=== PATIENT | male | born 1965 | race Caucasian/White ===

== ENCOUNTER 2016-08-11 12:16 | Emergency (ER) | payer SELFPAY ==
[2016-08-11] MEDS ORDERED: Sodium Chloride 0.9% 1,000 ML IV ONE (13:12)
[2016-08-11] MEDS ORDERED: Ketorolac 30 MG/ML SDV IVPUSH ONE (13:13)
[2016-08-11] MEDS ORDERED: Morphine 2 MG/ML Syringe IVPUSH ONE (13:18)
[2016-08-11] MEDS ORDERED: Tamsulosin 0.4 MG Cap.ER PO ONE (13:18)
--- NOTE | 2016-08-11 14:43 | EDM.PDOC ---
ED HPI GENERAL MEDICAL PROBLEM - General Chief Complaint: Back Pain or Injury Stated Complaint: LOWER BACK Time Seen by Provider: 08/11/16 13:00 Source of Information: Reports: Patient History Limitations: Reports: No Limitations - History of Present Illness INITIAL COMMENTS - FREE TEXT/NARRATIVE: HISTORY AND PHYSICAL: History of present illness: [Pt comes to the ED complaining of L flank pain. Symptoms began at 10 p.m. last night and have gradually increased throughout the night and a.m. Increased pain with forward flexion and L lateral flexion. Radiation of pain to LLQ abdomen w/ back flexion. Has a history of kidney stones with lithotripsy and stent one year ago. Denies any trauma or injury to his low back. Denies fever and chills, hematuria and burning w/ urination. NO nausea, vomiting, change in bowels movements, chest pain, SOA or dyspnea. Has not taken any medications for his symptoms. History significant for hypertension which is well-controlled.] Review of systems: As per history of present illness and below otherwise all systems reviewed and negative. Past medical history: As per history of present illness and as reviewed below otherwise noncontributory. Surgical history: As per history of present illness and as reviewed below otherwise noncontributory. Social history: No reported history of drug or alcohol abuse. Family history: As per history of present illness and as reviewed below otherwise noncontributory. Physical exam: HEENT: Atraumatic, normocephalic. Oral mucous membranes moist. Lungs: Clear to auscultation, breath sounds equal bilaterally. Heart: S1S2, regular rate and rhythm. Abdomen: L flank tenderness with percussion. None on the right. Abdomen is soft and nondistended. Genitourinary: Deferred. Rectal: Deferred. Extremities: Atraumatic. Neurovascular unremarkable. Neuro: Awake, alert, oriented. Motor and sensory unremarkable throughout. Exam nonfocal. Diagnostics: [CT abd and pelvis without contrast] Therapeutics: [Morphine 2mg IV, 1 liter NS] Impression: [kidney stones] Plan: [Refused Toradol IV. UA shows large amount of blood. Nonobstructive calculi present in both collecting systems on CT. Pt is notified of findings. Rx ketorolac 10mg (#20) si po q 6 hours 0 RF's, Flomax 0.4mg (#10) si po qd 0 RF's, hydrocodone 5/325mg (#30) si po q 4-6 hours prn pain 0 RF's. Referred to urology. Pt verbalized understanding of today's plan. ] Definitive disposition and diagnosis as appropriate pending reevaluation and review of above. Lower Back Pain Score (Numeric/FACES): 10 - Related Data Allergies Allergy/AdvReac Type Severity Reaction Status Date / Time No Known Allergies Allergy Verified 08/11/16 12:26 Home Meds: Home Meds Ketorolac [Toradol] 10 mg PO Q6H #20 tablet 08/11/16 [Rx] Tamsulosin HCl [Flomax] 0.4 mg PO DAILY #10 cap.er.24h 08/11/16 [Rx] Past Medical History - Past Health History Medical/Surgical History: Denies Medical/Surgical History Cardiovascular History: Reports: Hypertension Genitourinary History: Reports: Renal Calculus - Past Surgical History Other Male Surgeries/Procedures: surgery for kidney stones Other Musculoskeletal Surgeries/Procedures:: right shoulder surgery Social & Family History - Family History Family Medical History: Noncontributory - Tobacco Use Smoking Status *Q: Current Every Day Smoker Years of Tobacco use: 9 Packs/Tins Daily: 0.5 - Caffeine Use Caffeine Use: Reports: Coffee Caffeine Use Comment: 1-2x/week - Alcohol Use Days Per Week of Alcohol Use: 0 - Recreational Drug Use Recreational Drug Use: No ED ROS GENERAL - Review of Systems Review Of Systems: ROS reveals no pertinent complaints other than HPI. ED EXAM,LOWER BACK PAIN/INJURY - Physical Exam Exam: See Below Course - Vital Signs Last Recorded V/S: Last Vital Signs Temp 97.6 F 08/11/16 14:47 Pulse 66 08/11/16 14:47 Resp 16 08/11/16 14:47 BP 126/83 08/11/16 14:47 Pulse Ox 99 08/11/16 14:47 - Orders/Labs/Meds Orders: Active Orders 24 hr Category Date Time Status Abdomen Pelvis wo Cont [CT] Stat Exams 08/11/16 13:11 Taken Labs: Laboratory Tests 08/11/16 Range/Units 12:45 Urine Color YELLOW Urine Appearance SLT CLOUDY Urine pH 5.5 (5.0-8.0) Ur Specific [place] 1.015 (1.001-1.035) Urine Protein NEGATIVE (NEGATIVE) mg/dL Urine Glucose (UA) NEGATIVE (NEGATIVE) mg/dL Urine Ketones NEGATIVE (NEGATIVE) mg/dL Urine Occult Blood LARGE H (NEGATIVE) Urine Nitrite NEGATIVE (NEGATIVE) Urine Bilirubin NEGATIVE (NEGATIVE) Urine Urobilinogen 0.2 (<2.0) EU/dL Ur Leukocyte Esterase TRACE (NEGATIVE) Urine RBC 15-20 (0-2/HPF) Urine WBC 0-2 (0-5/HPF) Ur Epithelial Cells RARE (NONE-FEW) Amorphous Sediment RARE (NEGATIVE) Urine Bacteria RARE (NEGATIVE) Meds: Medications Discontinued Medications Generic Name Dose Route Start Last Admin Trade Name Freq PRN Reason Stop Dose Admin Sodium Chloride 1,000 mls @ 999 mls/hr 08/11/16 13:12 08/11/16 13:34 Normal Saline IV 08/11/16 14:12 999 mls/hr STAT ONE Administration Ketorolac Tromethamine 30 mg 08/11/16 13:13 08/11/16 13:36 Toradol IVPUSH 08/11/16 13:14 Not Given ONETIME ONE Morphine Sulfate 2 mg 08/11/16 13:18 08/11/16 13:33 Morphine IVPUSH 08/11/16 13:19 2 mg ONETIME ONE Administration Tamsulosin HCl 0.4 mg 08/11/16 13:18 08/11/16 13:32 Flomax PO 08/11/16 13:19 0.4 mg ONETIME ONE Administration Departure - Departure Time of Disposition: 14:47 Disposition: Home, Self-Care 01 Condition: good Clinical Impression: Kidney stone - Discharge Information Prescriptions: Ketorolac [Toradol] 10 mg PO Q6H #20 tablet Tamsulosin HCl [Flomax] 0.4 mg PO DAILY #10 cap.er.24h Instructions: Kidney Stones, [id number] Referrals: PCP,None [Primary Care Provider] - Jonatan Bagley MD [Physician] - Forms: ED Department Discharge Additional Instructions: The following information is given to patients seen in the emergency department who are being discharged to home. This information is to outline your options for follow-up care. We provide all patients seen in our emergency department with a follow-up referral. The need for follow-up, as well as the timing and circumstances, are variable depending upon the specifics of your emergency department visit. If you don't have a primary care physician on staff, we will provide you with a referral. We always advise you to contact your personal physician following an emergency department visit to inform them of the circumstance of the visit and for follow-up with them and/or the need for any referrals to a consulting specialist. The emergency department will also refer you to a specialist when appropriate. This referral assures that you have the opportunity for follow-up care with a specialist. All of these measure are taken in an effort to provide you with optimal care, which includes your follow-up. Under all circumstances we always encourage you to contact your private physician who remains a resource for coordinating your care. When calling for follow-up care, please make the office aware that this follow-up is from your recent emergency room visit. If for any reason you are refused follow-up, please contact the [facility] emergency department at and asked to speak to the emergency department charge nurse. [facility] Specialty Care - Urology [address] [place] [id number] Call the clinic listed above tomorrow morning to schedule followup appointment with our urologist. Take medications as prescribed. Return to ER as needed as discussed. - My Orders Last 24 Hours: My Active Orders 08/11/16 13:11 Abdomen Pelvis wo Cont [CT] Stat - Assessment/Plan Last 24 Hours: My Active Orders 08/11/16 13:11 Abdomen Pelvis wo Cont [CT] Stat
[2016-08-11 14:48] VITALS: BP 126/83
--- NOTE | 2016-08-12 17:43 | CT ---
EXAM DATE: 08/11/16 PATIENT'S AGE: 51 Patient: CODY SANDERS Facility: [place], [place] Site . Site : [id number] Study: CT Abdomen/Pelvis [id number]/[id number] 1:31:29 PM Ordering Physician: Doctor Haile Final Report: INDICATION: left flank pain HISTORY: Left flank pain. COMPARISON: None. TECHNIQUE: CT of the abdomen and pelvis without intravenous contrast. Coronal/sagittal reconstruction images. FINDINGS: Lung bases: There is no pleural or pericardial effusion. The heart size is normal. The lung bases demonstrate no acute airspace disease. There is no basilar pneumothorax. Abdomen/pelvis: No solid hepatic mass. The hepatic morphology is normal. Probable benign appearing cyst in segment 8 of the liver on image 29, series 201. This measures 4-5 mm in dimension. Spleen size is normal. No adrenal mass. Nonobstructive calculi in both intrarenal collecting systems. Four calculi are seen in the left intrarenal collecting system. Six calculi are seen in the right intrarenal collecting system. These measure up to 4 mm in dimension. There is no obstructive urolith. Prostate and urinary bladder are within normal limits. There is diverticulosis of the colon. No findings are seen to indicate diverticulitis. No small bowel obstruction. Normal caliber appendix. No abdominal aortic aneurysm. No abdominal or pelvic lymphadenopathy by size criteria. The bone windows demonstrate no lytic or blastic bone lesions. The alignment is preserved. There is osteophytic spurring present at the endplates. Irregularity about the inferior endplate of L1, does not appear acute. This is best seen on sagittal reconstruction images. IMPRESSION: 1. Nonobstructive calculi in both intrarenal collecting systems. 2. There is no obstructive urolith, hydronephrosis, or perinephric edema. 3. Normal caliber appendix. 4. Diverticulosis of the colon. No associated inflammatory changes. Dictated by Kofi Vaughn MD @ 08/11/2016 2:25:06 PM Dictated by: Kofi Vaughn MD @ 08/11/2016 14:25:38 (Electronic Signature) Report Signed by Proxy. [facility] HOSPITALMyra
== END 2016-08-11 14:51 | disposition home or self-care (01) ==
LOC: MW.ED 12:16
DX: N20.0 Calculus of kidney (principal); I10 Essential (primary) hypertension; F17.210 Nicotine dependence, cigarettes, uncomplicated; Z79.899 Other long term (current) drug therapy
CPT/HCPCS: 74176; 81001; 96361; 96374; 99284; A9270; J2270; J7040

== ENCOUNTER 2016-08-12 15:21 | Emergency (ER) | payer SELFPAY ==
[2016-08-12] MEDS ORDERED: Ondansetron 4 MG/2 ML SDV IVPUSH ONE (15:26)
[2016-08-12] MEDS ORDERED: Sodium Chloride 0.9% 2.5 ML Syringe FLUSH PRN (15:26)
[2016-08-12] MEDS ORDERED: HYDROmorphone 1 MG/ML Syringe IVPUSH PRN (15:26)
[2016-08-12] MEDS ORDERED: Sodium Chloride 0.9% 10 ML Syringe FLUSH PRN (15:26)
[2016-08-12] MEDS ORDERED: Sodium Chloride 0.9% 1,000 ML IV ONE (15:26)
[2016-08-12] MEDS ORDERED: HYDROmorphone 1 MG/ML Syringe ONE (15:42)
--- NOTE | 2016-08-12 15:59 | EDM.PDOC ---
ED HPI GENERAL MEDICAL PROBLEM - General Chief Complaint: Flank Pain Stated Complaint: KIDNEY STONES Time Seen by Provider: 08/12/16 15:26 Source of Information: Reports: Patient History Limitations: Reports: No Limitations - History of Present Illness INITIAL COMMENTS - FREE TEXT/NARRATIVE: History of present illness: [] Patient presented yesterday with left flank pain and hematuria diagnosed with a kidney stone. He was discharged with pain medications but returns today with continuing flank pain and hematuria. Denies vomiting, diarrhea or fevers. States he is taking his pain meds but has not been working. Review of systems: As per history of present illness and below otherwise all systems reviewed and negative. Past medical history: As per history of present illness and as reviewed below otherwise noncontributory. Surgical history: As per history of present illness and as reviewed below otherwise noncontributory. Social history: No reported history of drug or alcohol abuse. Family history: As per history of present illness and as reviewed below otherwise noncontributory. Physical exam: General: Well developed, well nourished in NAD HEENT: Atraumatic, normocephalic, pupils reactive, negative for conjunctival pallor or scleral icterus, mucous membranes moist, throat clear, neck supple, nontender, trachea midline. Lungs: Clear to auscultation, breath sounds equal bilaterally, chest nontender. Heart: S1S2, regular, negative for clicks, rubs, or JVD. Abdomen: Soft, nondistended, nontender. Negative for masses or hepatosplenomegaly. Negative for costovertebral tenderness. Pelvis: Stable nontender. Genitourinary: Deferred. Rectal: Deferred. Extremities: Atraumatic, negative for cords or calf pain. Neurovascular unremarkable. Neuro: Awake, alert, oriented. Cranial nerves II through XII unremarkable. Cerebellum unremarkable. Motor and sensory unremarkable throughout. Exam nonfocal. Diagnostics: [] BUN and creatinine are normal Therapeutics: [] IV hydrated given Dilaudid 1 mg Impression: [] Left flank pain, I asked Dr. Echols to review the CT from yesterday and there is no sign of ureteral stone or diverticulitis causing his pain. This point I'm unsure of the cause of his flank pain Plan: [] Continue regular meds follow up with urology Definitive disposition and diagnosis as appropriate pending reevaluation and review of above. left kidney Pain Score (Numeric/FACES): 10 - Related Data Allergies Allergy/AdvReac Type Severity Reaction Status Date / Time No Known Allergies Allergy Verified 08/11/16 12:26 Home Meds: Home Meds Ketorolac [Toradol] 10 mg PO Q6H #20 tablet 08/11/16 [Rx] Tamsulosin HCl [Flomax] 0.4 mg PO DAILY #10 cap.er.24h 08/11/16 [Rx] Past Medical History - Past Health History Medical/Surgical History: Denies Medical/Surgical History Cardiovascular History: Reports: Hypertension Genitourinary History: Reports: Renal Calculus - Past Surgical History Other Male Surgeries/Procedures: surgery for kidney stones Other Musculoskeletal Surgeries/Procedures:: right shoulder surgery Social & Family History - Family History Family Medical History: Noncontributory - Tobacco Use Smoking Status *Q: Current Every Day Smoker Years of Tobacco use: 15 Packs/Tins Daily: 0.2 - Caffeine Use Caffeine Use: Reports: Coffee, Tea Caffeine Use Comment: 1-2x/week - Alcohol Use Days Per Week of Alcohol Use: 0 - Recreational Drug Use Recreational Drug Use: No ED ROS GENERAL - Review of Systems Review Of Systems: See Below (See history of present illness) ED EXAM, RENAL/ - Physical Exam Exam: See Below (See history of present illness) Course - Vital Signs Last Recorded V/S: Last Vital Signs Temp 36.3 C 08/12/16 15:31 Pulse 95 08/12/16 15:31 Resp 18 08/12/16 15:31 BP 121/88 08/12/16 15:31 Pulse Ox 96 08/12/16 15:31 - Orders/Labs/Meds Orders: Active Orders 24 hr Category Date Time Status HYDROmorphone [Dilaudid] Med 08/12/16 15:26 Active 0.5 mg IVPUSH Q1H PRN Sodium Chloride 0.9% [Saline Flush] Med 08/12/16 15:26 Active 10 ml FLUSH ASDIRECTED PRN Sodium Chloride 0.9% [Saline Flush] Med 08/12/16 15:26 Active 2.5 ml FLUSH ASDIRECTED PRN Peripheral IV Insertion Adult [OM.PC] Stat Oth 08/12/16 15:26 Ordered Medication Orders Hydromorphone HCl (Dilaudid) 0.5 mg IVPUSH Q1H PRN PRN Reason: Pain Last Admin: 08/12/16 15:53 Dose: 0.5 mg Sodium Chloride (Saline Flush) 10 ml FLUSH ASDIRECTED PRN PRN Reason: Keep Vein Open Sodium Chloride (Saline Flush) 2.5 ml FLUSH ASDIRECTED PRN PRN Reason: Keep Vein Open Labs: Laboratory Tests 08/12/16 Range/Units 15:00 Sodium 140 (136-146) mmol/L Potassium 3.8 (3.5-5.1) mmol/L Chloride 105 (98-110) mmol/L Carbon Dioxide 26 (21-31) mmol/L BUN 22 (6.0-23.0) mg/dL Creatinine 1.2 (0.6-1.5) mg/dL Est Cr Clr Drug Dosing 78.98 mL/min Estimated GFR (MDRD) > 60.0 ml/min Glucose 104 (60-110) mg/dL Calcium 9.6 (8.8-10.8) mg/dL Meds: Medications Generic Name Dose Route Start Last Admin Trade Name Fremendoza PRN Reason Stop Dose Admin Hydromorphone HCl 0.5 mg 08/12/16 15:26 08/12/16 15:53 Dilaudid IVPUSH 0.5 mg Q1H PRN Administration Pain Sodium Chloride 10 ml 08/12/16 15:26 Saline Flush FLUSH ASDIRECTED PRN Keep Vein Open Sodium Chloride 2.5 ml 08/12/16 15:26 Saline Flush FLUSH ASDIRECTED PRN Keep Vein Open Discontinued Medications Generic Name Dose Route Start Last Admin Trade Name Freq PRN Reason Stop Dose Admin Hydromorphone HCl Confirm 08/12/16 15:42 08/12/16 15:55 Dilaudid Administered 08/12/16 15:43 Not Given Dose 1 mg .ROUTE .STK-MED ONE Sodium Chloride 1,000 mls @ 999 mls/hr 08/12/16 15:26 08/12/16 15:53 Normal Saline IV 08/12/16 16:26 999 mls/hr .Bolus ONE Administration Ondansetron HCl 4 mg 08/12/16 15:26 08/12/16 15:52 Zofran IVPUSH 08/12/16 15:27 4 mg ONETIME ONE Administration Departure - Departure Time of Disposition: 16:53 Disposition: Home, Self-Care 01 Condition: good Clinical Impression: Renal colic - Discharge Information Forms: ED Department Discharge Additional Instructions: The following information is given to patients seen in the emergency department who are being discharged to home. This information is to outline your options for follow-up care. We provide all patients seen in our emergency department with a follow-up referral. The need for follow-up, as well as the timing and circumstances, are variable depending upon the specifics of your emergency department visit. If you don't have a primary care physician on staff, we will provide you with a referral. We always advise you to contact your personal physician following an emergency department visit to inform them of the circumstance of the visit and for follow-up with them and/or the need for any referrals to a consulting specialist. The emergency department will also refer you to a specialist when appropriate. This referral assures that you have the opportunity for follow-up care with a specialist. All of these measure are taken in an effort to provide you with optimal care, which includes your follow-up. Under all circumstances we always encourage you to contact your private physician who remains a resource for coordinating your care. When calling for follow-up care, please make the office aware that this follow-up is from your recent emergency room visit. If for any reason you are refused follow-up, please contact the [facility] Emergency Department at and asked to speak to the emergency department charge nurse. Continue pain meds given previously. Followup urology [facility] Specialty Care - Urology [address] [place] [id number] - My Orders Last 24 Hours: My Active Orders 08/12/16 15:26 HYDROmorphone [Dilaudid] 0.5 mg IVPUSH Q1H PRN Sodium Chloride 0.9% [Saline Flush] 10 ml FLUSH ASDIRECTED PRN Sodium Chloride 0.9% [Saline Flush] 2.5 ml FLUSH ASDIRECTED PRN Peripheral IV Insertion Adult [OM.PC] Stat - Assessment/Plan Last 24 Hours: My Active Orders 08/12/16 15:26 HYDROmorphone [Dilaudid] 0.5 mg IVPUSH Q1H PRN Sodium Chloride 0.9% [Saline Flush] 10 ml FLUSH ASDIRECTED PRN Sodium Chloride 0.9% [Saline Flush] 2.5 ml FLUSH ASDIRECTED PRN Peripheral IV Insertion Adult [OM.PC] Stat
[2016-08-12 16:22] LABS: CHLORIDE,CL 105 mmol/L (98-110); SODIUM,NA 140 mmol/L (136-146)
[2016-08-12 19:52] VITALS: BP 127/75
== END 2016-08-12 17:01 | disposition home or self-care (01) ==
LOC: MW.ED 15:21
DX: N23 Unspecified renal colic (principal); I10 Essential (primary) hypertension; F17.210 Nicotine dependence, cigarettes, uncomplicated; Z79.899 Other long term (current) drug therapy
CPT/HCPCS: 36415; 80048; 96361; 96374; 96375; 99283; J1170; J2405; J7040; 99284

== ENCOUNTER → 2016-08-19 | Outpatient (CLI) | payer SELFPAY | LOC: MW.CHUR 12:30 | PROVIDERS: ATTEND Urology | DX: N20.0 Calculus of kidney (principal) | CPT/HCPCS: 81001 ==

== ENCOUNTER 2017-10-21 09:15 | Emergency (ER) | payer BC ==
[2017-10-21] MEDS ORDERED: Bacitracin Oint 1 GM U/D Packet TOP ONE (09:37)
--- NOTE | 2017-10-21 09:49 | EDM.PDOC ---
ED HPI GENERAL MEDICAL PROBLEM - General Chief Complaint: ENT Problem Stated Complaint: nose bleed Time Seen by Provider: 10/21/17 09:45 - History of Present Illness INITIAL COMMENTS - FREE TEXT/NARRATIVE: HISTORY AND PHYSICAL: History of present illness: Patient's 52-year-old male presents with a concern of bleeding from a abrasion to his midface that excoriated a superficial capillary this is resolved since arrival with direct pressure he denies other concern. Review of systems: As per history of present illness and below otherwise all systems reviewed and negative. Past medical history: As per history of present illness and as reviewed below otherwise noncontributory. Surgical history: As per history of present illness and as reviewed below otherwise noncontributory. Social history: No reported history of drug or alcohol abuse. Family history: As per history of present illness and as reviewed below otherwise noncontributory. Physical exam: HEENT: Atraumatic, normocephalic, pupils reactive, negative for conjunctival pallor or scleral icterus, mucous membranes moist, throat clear, neck supple, nontender, trachea midline. Patient with small excoriated area on his nose overlying a superficial capillary with no active bleeding at this time Lungs: Clear to auscultation, breath sounds equal bilaterally, chest nontender. Heart: S1S2, regular, negative for clicks, rubs, or JVD. Abdomen: Soft, nondistended, nontender. Negative for masses or hepatosplenomegaly. Negative for costovertebral tenderness. Pelvis: Stable nontender. Genitourinary: Deferred. Rectal: Deferred. Extremities: Atraumatic, negative for cords or calf pain. Neurovascular unremarkable. Neuro: Awake, alert, oriented. Cranial nerves II through XII unremarkable. Cerebellum unremarkable. Motor and sensory unremarkable throughout. Exam nonfocal. Diagnostics: None Therapeutics: None Impression: #1 midface bleeding secondary to minor excoriation (capillary) Definitive disposition and diagnosis as appropriate pending reevaluation and review of above. - Related Data Allergies Allergy/AdvReac Type Severity Reaction Status Date / Time No Known Allergies Allergy Verified 10/21/17 09:29 Home Meds: Home Meds . [No Known Home Meds] 10/21/17 [History] Past Medical History - Past Health History Medical/Surgical History: Denies Medical/Surgical History Cardiovascular History: Reports: Hypertension Genitourinary History: Reports: Renal Calculus - Infectious Disease History Infectious Disease History: Reports: None - Past Surgical History Other Male Surgeries/Procedures: surgery for kidney stones Other Musculoskeletal Surgeries/Procedures:: right shoulder surgery Social & Family History - Family History Family Medical History: Noncontributory - Tobacco Use Smoking Status *Q: Current Every Day Smoker Years of Tobacco use: 25 Packs/Tins Daily: 0.3 - Caffeine Use Caffeine Use: Reports: Coffee Caffeine Use Comment: 1-2x/week - Recreational Drug Use Recreational Drug Use: No ED ROS GENERAL - Review of Systems Review Of Systems: ROS reveals no pertinent complaints other than HPI. ED EXAM, GENERAL - Physical Exam Exam: See Below (See dictation) Course - Vital Signs Last Recorded V/S: Last Vital Signs Temp 36.3 C 10/21/17 09:30 Pulse 87 10/21/17 09:30 Resp 16 10/21/17 09:30 BP 174/109 H 10/21/17 09:30 Pulse Ox 98 10/21/17 09:30 - Orders/Labs/Meds Meds: Medications Discontinued Medications Generic Name Dose Route Start Last Admin Trade Name Jad PRN Reason Stop Dose Admin Bacitracin 1 dose 10/21/17 09:37 10/21/17 09:42 Bacitracin Oint 1 Gm TOP 10/21/17 09:38 1 dose ONETIME ONE Administration Departure - Departure Time of Disposition: 09:47 Disposition: Home, Self-Care 01 Condition: Good Clinical Impression: Excoriation of face - Discharge Information *PRESCRIPTION DRUG MONITORING PROGRAM REVIEWED*: Not Applicable *COPY OF PRESCRIPTION DRUG MONITORING REPORT IN PATIENT ALBA: Not Applicable Referrals: PCP,None [Primary Care Provider] - Additional Instructions: The following information is given to patients seen in the emergency department who are being discharged to home. This information is to outline your options for follow-up care. We provide all patients seen in our emergency department with a follow-up referral. The need for follow-up, as well as the timing and circumstances, are variable depending upon the specifics of your emergency department visit. If you don't have a primary care physician on staff, we will provide you with a referral. We always advise you to contact your personal physician following an emergency department visit to inform them of the circumstance of the visit and for follow-up with them and/or the need for any referrals to a consulting specialist. The emergency department will also refer you to a specialist when appropriate. This referral assures that you have the opportunity for followup care with a specialist. All of these measure are taken in an effort to provide you with optimal care, which includes your followup. Under all circumstances we always encourage you to contact your private physician who remains a resource for coordinating your care. When calling for followup care, please make the office aware that this follow-up is from your recent emergency room visit. If for any reason you are refused follow-up, please contact the [facility] emergency department at and asked to speak to the emergency department charge nurse. Follow-up private medical doctor as needed as discussed return as needed as discussed
[2017-10-21 11:11] VITALS: BP 156/101
== END 2017-10-21 09:57 | disposition home or self-care (01) ==
LOC: MW.ED 09:15
DX: S00.31XA Abrasion of nose, initial encounter (principal); I10 Essential (primary) hypertension; F17.210 Nicotine dependence, cigarettes, uncomplicated; X58.XXXA Exposure to other specified factors, initial encounter
CPT/HCPCS: 99282; 99283

== ENCOUNTER 2018-10-17 15:39 | Emergency (ER) | payer BC ==
[2018-10-17] MEDS ORDERED: Ketorolac 60 MG/2 ML SDV IM ONE (15:55)
--- NOTE | 2018-10-17 16:07 | EDM.PDOC ---
ED HPI GENERAL MEDICAL PROBLEM - General Chief Complaint: Back Pain or Injury Stated Complaint: BACK INJURY Time Seen by Provider: 10/17/18 15:54 - History of Present Illness INITIAL COMMENTS - FREE TEXT/NARRATIVE: HISTORY AND PHYSICAL: History of present illness: HISTORY AND PHYSICAL: History of present illness: Patient 33-year-old white male presents with acute low back pain after lifting a tire at work he denies numbness weakness in concert bowel or bladder he states he did have his back brace at that time. Review of systems: As per history of present illness and below otherwise all systems reviewed and negative. Past medical history: As per history of present illness and as reviewed below otherwise noncontributory. Surgical history: As per history of present illness and as reviewed below otherwise noncontributory. Social history: No reported history of drug or alcohol abuse. Family history: As per history of present illness and as reviewed below otherwise noncontributory. Physical exam: HEENT: Atraumatic, normocephalic, pupils reactive, negative for conjunctival pallor or scleral icterus, mucous membranes moist, throat clear, neck supple, nontender, trachea midline. Lungs: Clear to auscultation, breath sounds equal bilaterally, chest nontender. Heart: S1S2, regular, negative for clicks, rubs, or JVD. Abdomen: Soft, nondistended, nontender. Negative for masses or hepatosplenomegaly. Negative for costovertebral tenderness. Pelvis: Stable nontender. Genitourinary: Deferred. Rectal: Deferred. Extremities: Atraumatic, negative for cords or calf pain. Neurovascular unremarkable. Neuro: Awake, alert, oriented. Cranial nerves II through XII unremarkable. Cerebellum unremarkable. Motor and sensory unremarkable throughout. Exam nonfocal. Back: Patient has tenderness in paravertebral region with spasm noted at the level of lumbar spine no vertebral body or point tenderness she is able stand on his toes back on his heels deep tendon reflexes motor and sensory are normal Diagnostics: UA Therapeutics: Toradol 60 mg IM Impression: #1 acute lumbar strain Definitive disposition and diagnosis as appropriate pending reevaluation and review of above. Review of systems: As per history of present illness and below otherwise all systems reviewed and negative. Past medical history: As per history of present illness and as reviewed below otherwise noncontributory. Surgical history: As per history of present illness and as reviewed below otherwise noncontributory. Social history: No reported history of drug or alcohol abuse. Family history: As per history of present illness and as reviewed below otherwise noncontributory. Physical exam: HEENT: Atraumatic, normocephalic, pupils reactive, negative for conjunctival pallor or scleral icterus, mucous membranes moist, throat clear, neck supple, nontender, trachea midline. Lungs: Clear to auscultation, breath sounds equal bilaterally, chest nontender. Heart: S1S2, regular, negative for clicks, rubs, or JVD. Abdomen: Soft, nondistended, nontender. Negative for masses or hepatosplenomegaly. Negative for costovertebral tenderness. Pelvis: Stable nontender. Genitourinary: Deferred. Rectal: Deferred. Extremities: Atraumatic, negative for cords or calf pain. Neurovascular unremarkable. Neuro: Awake, alert, oriented. Cranial nerves II through XII unremarkable. Cerebellum unremarkable. Motor and sensory unremarkable throughout. Exam nonfocal. Diagnostics: [] Therapeutics: [] Impression: [] Definitive disposition and diagnosis as appropriate pending reevaluation and review of above. Lower Back Pain Score (Numeric/FACES): 10 - Related Data Allergies Allergy/AdvReac Type Severity Reaction Status Date / Time No Known Allergies Allergy Verified 10/17/18 15:54 Home Meds: Home Meds . [No Known Home Meds] 10/21/17 [History] Past Medical History - Past Health History Medical/Surgical History: Denies Medical/Surgical History Cardiovascular History: Reports: High Cholesterol, Hypertension Genitourinary History: Reports: Renal Calculus - Infectious Disease History Infectious Disease History: Reports: None - Past Surgical History Other Male Surgeries/Procedures: surgery for kidney stones Other Musculoskeletal Surgeries/Procedures:: right shoulder surgery Social & Family History - Family History Family Medical History: Noncontributory - Tobacco Use Smoking Status *Q: Current Every Day Smoker Years of Tobacco use: 10 Packs/Tins Daily: 0.2 - Caffeine Use Caffeine Use: Reports: Coffee Caffeine Use Comment: 1-2x/week - Recreational Drug Use Recreational Drug Use: No ED ROS GENERAL - Review of Systems Review Of Systems: ROS reveals no pertinent complaints other than HPI. ED EXAM, GENERAL - Physical Exam Exam: See Below (See dictation) Course - Vital Signs Last Recorded V/S: Last Vital Signs Temp 36.1 C 07/20/19 15:53 Pulse 99 10/17/18 15:53 Resp 18 10/17/18 15:53 BP 143/94 H 10/17/18 15:53 Pulse Ox 94 L 10/17/18 15:53 - Orders/Labs/Meds Orders: Active Orders 24 hr Category Date Time Status UA W/SAMINA RFLX IF INDICATED [URIN] Stat Lab 10/17/18 15:57 Ordered Meds: Medications Discontinued Medications Generic Name Dose Route Start Last Admin Trade Name Jad PRN Reason Stop Dose Admin Ketorolac Tromethamine 60 mg 10/17/18 15:55 10/17/18 16:02 Toradol IM 10/17/18 15:56 60 mg ONETIME ONE Administration Departure - Departure Time of Disposition: 16:06 Disposition: Home, Self-Care 01 Condition: Good Clinical Impression: Lumbar strain - Discharge Information Referrals: PCP,Unknown [Primary Care Provider] - Additional Instructions: The following information is given to patients seen in the emergency department who are being discharged to home. This information is to outline your options for follow-up care. We provide all patients seen in our emergency department with a follow-up referral. The need for follow-up, as well as the timing and circumstances, are variable depending upon the specifics of your emergency department visit. If you don't have a primary care physician on staff, we will provide you with a referral. We always advise you to contact your personal physician following an emergency department visit to inform them of the circumstance of the visit and for follow-up with them and/or the need for any referrals to a consulting specialist. The emergency department will also refer you to a specialist when appropriate. This referral assures that you have the opportunity for followup care with a specialist. All of these measure are taken in an effort to provide you with optimal care, which includes your followup. Under all circumstances we always encourage you to contact your private physician who remains a resource for coordinating your care. When calling for followup care, please make the office aware that this follow-up is from your recent emergency room visit. If for any reason you are refused follow-up, please contact the [facility] emergency department at and asked to speak to the emergency department charge nurse. Ultram Flexeril as prescribed follow-up primary medical doctor as needed as discussed and return as needed as discussed - My Orders Last 24 Hours: My Active Orders 10/17/18 15:57 UA W/SAMINA RFLX IF INDICATED [URIN] Stat - Assessment/Plan Last 24 Hours: My Active Orders 10/17/18 15:57 UA W/SAMINA RFLX IF INDICATED [URIN] Stat
[2018-10-17 16:52] VITALS: BP 148/95
== END 2018-10-17 16:55 | disposition home or self-care (01) ==
LOC: MW.ED 15:39
DX: S39.012A Strain of muscle, fascia and tendon of lower back, initial encounter (principal); I10 Essential (primary) hypertension; F17.210 Nicotine dependence, cigarettes, uncomplicated; X50.0XXA Overexertion from strenuous movement or load, initial encounter; Y99.0 Civilian activity done for income or pay
CPT/HCPCS: 81001; 96372; 99283; J1885

== ENCOUNTER 2019-05-20 16:15 | Emergency (ER) | payer BC ==
[2019-05-20] MEDS ORDERED: Sodium Chloride 0.9% 1,000 ML IV ONE (17:03)
[2019-05-20] MEDS ORDERED: Ondansetron 4 MG/2 ML SDV IVPUSH ONE (17:03)
--- NOTE | 2019-05-20 17:07 | EDM.PDOC ---
ED HPI GENERAL MEDICAL PROBLEM - General Chief Complaint: Gastrointestinal Problem Stated Complaint: FLU SYMPTOMS Time Seen by Provider: 05/20/19 16:57 Source of Information: Reports: Patient History Limitations: Reports: No Limitations - History of Present Illness INITIAL COMMENTS - FREE TEXT/NARRATIVE: HISTORY AND PHYSICAL: History of present illness: Patient is a 54-year-old male who presents to the ED today with concern of vomiting, weakness, and states he has not had a bowel movement for 5 days. Patient states he also has not passed gas for 5 days. Patient states that the vomiting is not consistent and he has been able to drink water and Pedialyte but has not been able to eat any solid foods over the past 5 days. Patient states that he feels weak and when he went to work today was unable to even hold a hose due to week. Patient states that he is not having any pain but has not had a bowel movement for 5 days and states he has also not passed gas. Patient states he has a history of hypertension and hyper cholesterolemia and states that he ran out of his medication 5 days ago so has not been taking these over the last 5 days. Patient denies any other health history. Patient states he does smoke about 5 cigarettes a day and has so for 20 to 30 years. Patient denies any other substance use. Patient denies any trauma or injury. Patient denies fever, chills, chest pain, shortness of breath, or cough. Denies headache, neck stiff ness, change in vision, syncope, or near syncope. Denies abdominal pain, diarrhea or dysuria. Has not noted any blood in urine or stool. Patient has been eating and drinking appropriately. Review of systems: As per history of present illness and below otherwise all systems reviewed and negative. Past medical history: As per history of present illness and as reviewed below otherwise noncontributory. Surgical history: As per history of present illness and as reviewed below otherwise noncontributory. Social history: See social history for further information Family history: As per history of present illness and as reviewed below otherwise noncontributory. Physical exam: General: Patient is alert, oriented, and in no acute distress. Patient laying comfortably on exam table. HEENT: Atraumatic, normocephalic, pupils equal and reactive bilaterally, negative for conjunctival pallor or scleral icterus, mucous membranes dry, TMs normal bilaterally, throat clear, neck supple, nontender, trachea midline. No drooling or trismus noted. No meningeal signs. No hot potato voice noted. Lungs: Clear to auscultation, breath sounds equal bilaterally, chest nontender. Heart: S1S2, regular rate and rhythm without overt murmur Abdomen: Soft, nondistended, nontender. Negative for masses or hepatosplenomegaly. Negative for costovertebral tenderness. Pelvis: Stable nontender. Genitourinary: Deferred. Rectal: Deferred. Skin: Intact, warm, dry. No lesions or rashes noted. Extremities: Atraumatic, negative for cords or calf pain. Neurovascular unremarkable. Neuro: Awake, alert, oriented. Cranial nerves II through XII unremarkable. Cerebellum unremarkable. Motor and sensory unremarkable throughout. Exam nonfocal. Notes: Patient has not had any episodes of vomiting in the ED today and has been able to keep down fluids. Discussed importance for follow-up with a urologist as well as a primary care provider. Voices understanding and is agreeable to plan of care. Denies any further questions or concerns at this time. Diagnostics: CBC, CMP, UA, EKG, chest x-ray, troponin, lipase, abdominal pelvic CT, Strep, Influenza Therapeutics: NS, Zofran Prescription: Zofran Impression: H/O vomiting Constipation Hematuria Plan: 1. Encourage small but frequent sips of fluid to prevent dehydration. Take medication as prescribed. 2. Follow-up with urologist and primary care provider as discussed. Return to the ED as needed and as discussed. 3. Use [id number] MiraLAX as directed for constipation. Definitive disposition and diagnosis as appropriate pending reevaluation and review of above. - Related Data Allergies Allergy/AdvReac Type Severity Reaction Status Date / Time Ghbathi-Rpf-Tdv Reductase Allergy Anaphylactic Verified 05/20/19 16:27 Inhibitor Shock Home Meds: Home Meds Rosuvastatin Calcium [Crestor] 40 mg PO DAILY 10/17/18 [History] Bp Med 05/20/19 [History] Past Medical History - Past Health History Medical/Surgical History: Denies Medical/Surgical History Cardiovascular History: Reports: High Cholesterol, Hypertension Genitourinary History: Reports: Renal Calculus - Infectious Disease History Infectious Disease History: Reports: Chicken Pox, Measles, Mumps - Past Surgical History Other Male Surgeries/Procedures: surgery for kidney stones Other Musculoskeletal Surgeries/Procedures:: right shoulder surgery Social & Family History - Family History Family Medical History: Noncontributory - Tobacco Use Smoking Status *Q: Current Every Day Smoker Years of Tobacco use: 5 Packs/Tins Daily: 0.2 - Caffeine Use Caffeine Use: Reports: Coffee Caffeine Use Comment: 1-2x/week - Recreational Drug Use Recreational Drug Use: No ED ROS GENERAL - Review of Systems Review Of Systems: Comprehensive ROS is negative, except as noted in HPI. ED EXAM, GENERAL - Physical Exam Exam: See Below (see dictation) Course - Vital Signs Last Recorded V/S: Last Vital Signs Temp 97.9 F 05/20/19 18:41 Pulse 72 05/20/19 18:41 Resp 16 05/20/19 18:41 BP 127/88 05/20/19 18:41 Pulse Ox 95 05/20/19 18:41 - Orders/Labs/Meds Orders: Active Orders 24 hr Category Date Time Status EKG Documentation Completion [RC] STAT Care 05/20/19 17:04 Active CULTURE STREP A CONFIRMATION [] Stat Lab 05/20/19 17:15 Results CULTURE URINE [] Stat Lab 05/20/19 17:40 Received STREP SCRN A RAPID W CULT CONF [] Stat Lab 05/20/19 17:15 Results Labs: Laboratory Tests 05/20/19 05/20/19 05/20/19 Range/Units 17:15 17:15 17:40 WBC 11.06 H (4.0-11.0) K/uL RBC 4.54 (4.50-5.90) M/uL Hgb 14.0 (13.0-17.0) g/dL Hct 40.3 (38.0-50.0) % MCV 88.8 (80.0-98.0) fL MCH 30.8 (27.0-32.0) pg MCHC 34.7 (31.0-37.0) g/dL RDW Std Deviation 42.9 (28.0-62.0) fl RDW Coeff of Alina 13 (11.0-15.0) % Plt Count 292 (150-400) K/uL MPV 9.60 (7.40-12.00) fL Neut % (Auto) 72.5 (48.0-80.0) % Lymph % (Auto) 16.3 (16.0-40.0) % [place] % (Auto) 9.9 (0.0-15.0) % Eos % (Auto) 1.0 (0.0-7.0) % Baso % (Auto) 0.3 (0.0-1.5) % Neut # (Auto) 8.0 H (1.4-5.7) K/uL Lymph # (Auto) 1.8 (0.6-2.4) K/uL [place] # (Auto) 1.1 H (0.0-0.8) K/uL Eos # (Auto) 0.1 (0.0-0.7) K/uL Baso # (Auto) 0.0 (0.0-0.1) K/uL Sodium 142 (136-148) mmol/L Potassium 3.7 (3.5-5.1) mmol/L Chloride 105 (98-107) mmol/L Carbon Dioxide 23.4 (21.0-32.0) mmol/L BUN 21 H (7.0-18.0) mg/dL Creatinine 1.1 (0.8-1.3) mg/dL Est Cr Clr Drug Dosing 83.67 mL/min Estimated GFR (MDRD) > 60.0 ml/min Glucose 102 (74-106) mg/dL Calcium 9.3 (8.5-10.1) mg/dL Total Bilirubin 0.4 (0.2-1.0) mg/dL AST 21 (15-37) IU/L ALT 30 (14-63) IU/L Alkaline Phosphatase 94 (46-116) U/L Troponin I < 0.050 (0.000-0.056) ng/mL Total Protein 7.8 (6.4-8.2) g/dL Albumin 3.9 (3.4-5.0) g/dL Globulin 3.9 (2.6-4.0) g/dL Albumin/Globulin Ratio 1.0 (0.9-1.6) Lipase 145 (73-393) U/L Urine Color YELLOW Urine Appearance SLT CLOUDY Urine pH 5.5 (5.0-8.0) Ur Specific [place]bain >= 1.030 (1.001-1.035) Urine Protein TRACE H (NEGATIVE) mg/dL Urine Glucose (UA) NEGATIVE (NEGATIVE) mg/dL Urine Ketones 15 H (NEGATIVE) mg/dL Urine Occult Blood LARGE H (NEGATIVE) Urine Nitrite NEGATIVE (NEGATIVE) Urine Bilirubin NEGATIVE (NEGATIVE) Urine Urobilinogen 0.2 (<2.0) EU/dL Ur Leukocyte Esterase TRACE H (NEGATIVE) Urine RBC 80-90 (0-2/HPF) Urine WBC 0-2 (0-5/HPF) Ur Epithelial Cells FEW (NONE-FEW) Urine Bacteria FEW (NEGATIVE) Urine Mucus LIGHT (NONE-MOD) Meds: Medications Discontinued Medications Generic Name Dose Route Start Last Admin Trade Name Freq PRN Reason Stop Dose Admin Sodium Chloride 1,000 mls @ 999 mls/hr 05/20/19 17:03 05/20/19 17:15 Normal Saline IV 05/20/19 18:03 999 mls/hr BOLUS ONE Administration Iopamidol 100 ml 05/20/19 18:25 05/20/19 18:25 Isovue Multipack-370 (76%) IVPUSH 05/20/19 18:26 100 ml ONETIME STA Administration Ondansetron HCl 4 mg 05/20/19 17:03 05/20/19 17:21 Zofran IVPUSH 05/20/19 17:04 4 mg ONETIME ONE Administration Departure - Departure Time of Disposition: 19:13 Disposition: Home, Self-Care 01 Clinical Impression: History of vomiting Constipation Qualifiers: Constipation type: unspecified constipation type Qualified Code(s): K59.00 - Constipation, unspecified Hematuria Qualifiers: Hematuria type: unspecified type Qualified Code(s): R31.9 - Hematuria, unspecified - Discharge Information Referrals: Nelson Caldera MD [Primary Care Provider] - Forms: ED Department Discharge Additional Instructions: The following information is given to patients seen in the emergency department who are being discharged to home. This information is to outline your options for follow-up care. We provide all patients seen in our emergency department with a follow-up referral. The need for follow-up, as well as the timing and circumstances, are variable depending upon the specifics of your emergency department visit. If you don't have a primary care physician on staff, we will provide you with a referral. We always advise you to contact your personal physician following an emergency department visit to inform them of the circumstance of the visit and for follow-up with them and/or the need for any referrals to a consulting specialist. The emergency department will also refer you to a specialist when appropriate. This referral assures that you have the opportunity for follow-up care with a specialist. All of these measure are taken in an effort to provide you with optimal care, which includes your follow-up. Under all circumstances we always encourage you to contact your private physician who remains a resource for coordinating your care. When calling for follow-up care, please make the office aware that this follow-up is from your recent emergency room visit. If for any reason you are refused follow-up, please contact the [facility] Emergency Department at and asked to speak to the emergency department charge nurse. [facility] Primary [facility] [address] [place] [id number] [address] 1. Encourage small but frequent sips of fluid to prevent dehydration. Take medication as prescribed. 2. Follow-up with urologist and primary care provider as discussed. Return to the ED as needed and as discussed. 3. Use [id number] MiraLAX as directed for constipation. Sepsis Event Note - Evaluation Sepsis Screening Result: No Definite Risk - Focused Exam Vital Signs: Vital Signs Temp Pulse Resp BP Pulse Ox 05/20/19 18:41 97.9 F 72 16 127/88 95 05/20/19 16:24 97.6 F 92 20 160/99 H 95 Date Exam was Performed: 05/20/19 Time Exam was Performed: 19:11 - My Orders Last 24 Hours: My Active Orders 05/20/19 17:04 EKG Documentation Completion [RC] STAT 05/20/19 17:15 CULTURE STREP A CONFIRMATION [RM] Stat STREP SCRN A RAPID W CULT CONF [RM] Stat 05/20/19 17:40 CULTURE URINE [RM] Stat - Assessment/Plan Last 24 Hours: My Active Orders 05/20/19 17:04 EKG Documentation Completion [RC] STAT 05/20/19 17:15 CULTURE STREP A CONFIRMATION [RM] Stat STREP SCRN A RAPID W CULT CONF [] Stat 05/20/19 17:40 CULTURE URINE [RM] Stat
[2019-05-20 17:55] LABS: BLOOD UREA NITROGEN,BUN 21 mg/dL (7.0-18.0); CARBON DIOXIDE,CO2 23.4 mmol/L (21.0-32.0); CHLORIDE,CL 105 mmol/L (98-107); GLUCOSE RANDOM 102 mg/dL (74-106); LIPASE 145 U/L (73-393); POTASSIUM,K 3.7 mmol/L (3.5-5.1); SODIUM,NA 142 mmol/L (136-148)
--- NOTE | 2019-05-20 17:59 | CR ---
Chest: Portable view of the chest was obtained. Comparison: Prior chest x-ray of 10/21/13. Heart size and mediastinum are normal. Lungs are clear. Degenerative change is noted within the spine. Impression: 1. Nothing acute is appreciated on portable chest x-ray. Diagnostic code #2 Study was dictated in [place] Standard Time
[2019-05-20] MEDS ORDERED: Iopamidol 755 MG/ML 500 ML Multipack Bottle IVPUSH STA (18:25)
[2019-05-20 18:44] VITALS: BP 127/88; PULSE 72
--- NOTE | 2019-05-20 19:02 | CT ---
CT abdomen and pelvis Technique: Multiple axial sections were obtained from above the dome of the diaphragm inferiorly to the pubic symphysis. Intravenous contrast was utilized. No oral contrast has been given. Comparison: Prior noncontrast CT exam of 08/11-. Findings: Visualized lung bases show nothing acute. 2 small low-density lesions are noted within the right lobe of the liver measuring 5 mm or less in size. These are believed to be present on prior CT exam and therefore most likely due to small cysts. Spleen appears within normal limits. Adrenal glands show no nodule. Pancreas is within normal limits. Gallbladder contains no calcified gallstones. Kidneys show symmetric contrast enhancement. Multiple nonobstructing calculi are seen within both kidneys. No ureteral dilatation or ureteral stone is seen. Aorta shows atherosclerotic calcification which continues into the iliac vessels. No retroperitoneal adenopathy or mesenteric abnormalities are seen. Appendix is seen which is normal in size. No pelvic mass or adenopathy is identified. Bone window settings were reviewed which shows a limbus type vertebra within the inferior and anterior endplate of L1. This is stable from prior exam. Mild degenerative change is also noted within the spine which is stable. Small fat-containing umbilical hernia is noted. Mild diverticulosis is seen within the descending and sigmoid colon without inflammatory change of diverticulitis. Impression: 1. Findings as noted above. 2. Nothing acute is appreciated on CT study of the abdomen and pelvis. Diagnostic code #2 Study was dictated in [place] Standard Time
== END 2019-05-20 19:32 | disposition home or self-care (01) ==
LOC: MW.ED 16:15
DX: K59.00 Constipation, unspecified (principal); R31.9 Hematuria, unspecified; I10 Essential (primary) hypertension; E78.00 Pure hypercholesterolemia, unspecified; F17.210 Nicotine dependence, cigarettes, uncomplicated; Z88.8 Allergy status to other drugs, medicaments and biological substances; Z79.899 Other long term (current) drug therapy; Z87.19 Personal history of other diseases of the digestive system
CPT/HCPCS: 36415; 71045; 74177; 80053; 81001; 83690; 84484; 85025; 87081; 87086; 87804; 87880; 93005; 96361; 96374; 99285; J2405; J7030; Q9967; 99284